=== PATIENT | male | born 1955 | race Caucasian/White ===

== ENCOUNTER 2020-03-29 12:54 | Outpatient (CLI) | payer BC, OTHER ==
[~2020-03-29 12:54] MED LIST: ENAL20TA75 PO
[2020-03-29 13:27] LABS: BASOPHILS # (AUTO) 0.1 X10'3 (0-0.2); BASOPHILS % (AUTO) 0.8 % (0-1); EOSINOPHILS # (AUTO) 0.2 X10'3 (0-0.9); EOSINOPHILS % (AUTO) 2.3 % (0-6); HEMATOCRIT 43.9 % (42.0-52.0); HEMOGLOBIN 14.9 g/dl (14.0-17.9); LYMPHOCYTES # (AUTO) 2.4 X10'3 (1.1-4.8); LYMPHOCYTES % (AUTO) 26.2 % (21-51); MEAN CORPUSCULAR HEMOGLOBIN 30.2 PG (27.0-31.0); MEAN CORPUSCULAR HGB CONC 33.8 g/dL (33.0-36.5); MEAN CORPUSCULAR VOLUME 89.2 FL (78-98); MEAN PLATELET VOLUME 8.4 FL (7.4-10.4); MONOCYTES # (AUTO) 1.5 X10'3 (0-0.9); MONOCYTES % (AUTO) 16.4 % (2-12); NEUTROPHILS % (AUTO) 54.3 % (42-75); PLATELET COUNT 282 X10'3 (140-440); RED BLOOD COUNT 4.92 X10'6 (4.70-6.10); RED CELL DISTRIBUTION WIDTH 14.3 % (11.5-14.5); WHITE BLOOD COUNT 9.3 X10'3 (4.5-11.0)
[2020-03-29 13:30] LABS: ALBUMIN 3.8 G/DL (3.4-5.0); ANION GAP 9 (8-16); BLOOD UREA NITROGEN 19 MG/DL (7-18); BUN/CREATININE RATIO 21.1 (5.4-32.0); CALCIUM 8.7 MG/DL (8.5-10.1); CHLORIDE 106 MMOL/L (99-107); GLUCOSE 138 MG/DL (70-104); POTASSIUM 4.3 MMOL/L (3.5-5.1); SODIUM 140 MMOL/L (135-145); TOTAL CARBON DIOXIDE 24.8 MMOL/L (24-32); eGFR 86 ML/MIN
[2020-03-29 13:35] LABS: PARTIAL THROMBOPLASTIN TIME 46 SECONDS (22-32)
== END 2020-03-29 23:59 | disposition home or self-care (01) ==
LOC: LAB 12:54
PROVIDERS: ATTEND Internal Medicine Interventional Cardiology
DX: I48.0 Paroxysmal atrial fibrillation (principal); Z79.01 Long term (current) use of anticoagulants
CPT/HCPCS: 36415; 80048; 85025; 85610; 85730

== ENCOUNTER 2020-04-03 13:57 | Day surgery (SDC) | payer OTHER ==
[2020-04-03] VITALS (7 sets, daily range): BP systolic 94–113; BP diastolic 44–75
[~2020-04-03] VITALS: Ht 170.2 cm; Wt 105.7 kg
[2020-04-03] MEDS ORDERED: diphenhydrAMINE 25mg capsule PO PRN (14:25)
[2020-04-03] MEDS ORDERED: normal saline 1,000 ML IV SCH (14:25)
[2020-04-03] MEDS ORDERED: LORazepam 0.5 MG tablet PO PRN (14:25)
[2020-04-03] MEDS ORDERED: SOTA80TA PO (14:38)
[2020-04-03] MEDS ORDERED: ATOR20TA66 PO (14:38)
[2020-04-03] MEDS ORDERED: WARF10TA45 PO (14:38)
[2020-04-03] MEDS ORDERED: METF-438 PO (14:38)
[2020-04-03] MEDS ORDERED: ASPI-611 PO (14:38)
[2020-04-03] MEDS ORDERED: nitroGLYCERIN-Tridil 50MG/D5W 250 ML IV ONE (16:00)
[2020-04-03] MEDS ORDERED: LIDOcaine 1% (10mg/ml)w/preservative injection 20ml MDV ONE (16:00)
[2020-04-03] MEDS ORDERED: heparin 1,000unit/ml 10ml vial 10 ML ONE (16:00)
[2020-04-03] MEDS ORDERED: iohexol 350MG/ML 100ml bottle IV ONE (16:00)
[2020-04-03] MEDS ORDERED: midazolam 2 mg/2 ml injection ONE (16:00)
[2020-04-03] MEDS ORDERED: fentaNYL/PF 50MCG/1 ML 2ML syringe ONE (16:00)
[2020-04-03] MEDS ORDERED: verapamil 2.5 mg/ml inj IV ONE (16:00)
[2020-04-03] MEDS ORDERED: ondansetron/PF 4mg/2ml inj IV PRN (17:20)
[2020-04-03] MEDS ORDERED: OXAZEpam 15mg capsule PO PRN (17:20)
[2020-04-03] MEDS ORDERED: proCHLORperazine 10 MG/2 ml inj IV PRN (17:20)
== END 2020-04-03 19:00 | disposition home or self-care (01) ==
LOC: SSTAY O 13:57
PROVIDERS: ATTEND Internal Medicine Interventional Cardiology
DX: I35.0 Nonrheumatic aortic (valve) stenosis (principal); I25.10 Atherosclerotic heart disease of native coronary artery without angina pectoris; I48.0 Paroxysmal atrial fibrillation; E11.9 Type 2 diabetes mellitus without complications; I10 Essential (primary) hypertension; E78.49 Other hyperlipidemia; I65.23 Occlusion and stenosis of bilateral carotid arteries; Z79.84 Long term (current) use of oral hypoglycemic drugs; Z79.82 Long term (current) use of aspirin; Z79.01 Long term (current) use of anticoagulants; Z79.899 Other long term (current) drug therapy
CPT/HCPCS: 36415; 85610; 93005; 93454; 99152; C1769; J1644; J2001; J2250; J3010; J7030; Q0163; Q9967; A4620; A6258; J3490

== ENCOUNTER 2020-05-15 09:35 | Outpatient (CLI) | payer OTHER ==
[~2020-05-15 09:35] MED LIST changes: +ASPI-611 PO; +ATOR20TA66 PO; +METF-438 PO; +SOTA80TA PO; +WARF10TA45 PO
[2020-05-15 11:28] LABS: BASOPHILS # (AUTO) 0.1 X10'3 (0-0.2); BASOPHILS % (AUTO) 0.9 % (0-1); EOSINOPHILS # (AUTO) 0.2 X10'3 (0-0.9); EOSINOPHILS % (AUTO) 2.2 % (0-6); HEMATOCRIT 44.5 % (42.0-52.0); LYMPHOCYTES # (AUTO) 2.3 X10'3 (1.1-4.8); LYMPHOCYTES % (AUTO) 23.8 % (21-51); MEAN CORPUSCULAR HEMOGLOBIN 30.3 PG (27.0-31.0); MEAN CORPUSCULAR HGB CONC 33.7 g/dL (33.0-36.5); MEAN CORPUSCULAR VOLUME 89.8 FL (78-98); MEAN PLATELET VOLUME 8.3 FL (7.4-10.4); MONOCYTES # (AUTO) 1.4 X10'3 (0-0.9); MONOCYTES % (AUTO) 14.6 % (2-12); NEUTROPHILS # (AUTO) 5.6 X10'3 (1.8-7.7); NEUTROPHILS % (AUTO) 58.5 % (42-75); PLATELET COUNT 263 X10'3 (140-440); RED BLOOD COUNT 4.95 X10'6 (4.70-6.10); RED CELL DISTRIBUTION WIDTH 14.3 % (11.5-14.5); WHITE BLOOD COUNT 9.5 X10'3 (4.5-11.0)
[2020-05-15 11:37] LABS: PARTIAL THROMBOPLASTIN TIME 50 SECONDS (22-32)
[2020-05-15 11:39] LABS: ALANINE AMINOTRANSFERASE 58 U/L (12-78); ALBUMIN 3.5 G/DL (3.4-5.0); ALBUMIN/GLOBULIN RATIO 1.1 (1.1-1.5); ALKALINE PHOSPHATASE 88 IU/L (46-116); ANION GAP 7 (8-16); ASPARTATE AMINO TRANSFERASE 26 U/L (10-37); BILIRUBIN,TOTAL 0.5 MG/DL (0.1-1.0); BLOOD UREA NITROGEN 16 MG/DL (7-18); CALCIUM 8.3 MG/DL (8.5-10.1); CHLORIDE 105 MMOL/L (99-107); CREATININE 0.94 MG/DL (0.60-1.10); GLUCOSE 218 MG/DL (70-104); POTASSIUM 4.6 MMOL/L (3.5-5.1); SODIUM 139 MMOL/L (135-145); TOTAL CARBON DIOXIDE 26.7 MMOL/L (24-32); TOTAL PROTEIN 6.8 G/DL (6.4-8.2); eGFR 81 ML/MIN
== END 2020-05-15 23:59 | disposition home or self-care (01) ==
LOC: RT 09:35
PROVIDERS: ATTEND Internal Medicine Cardiovascular Disease
DX: R06.02 Shortness of breath (principal); I35.0 Nonrheumatic aortic (valve) stenosis; I65.29 Occlusion and stenosis of unspecified carotid artery
CPT/HCPCS: 36415; 80053; 85025; 85610; 85730; 94010; 94727; 94729

== ENCOUNTER 2020-05-18 09:42 | Outpatient (CLI) | payer OTHER ==
[2020-05-18] MEDS ORDERED: iohexol 350 MG/ML 50ML vial IV ONE (10:11)
[2020-05-18] MEDS ORDERED: iohexol 350MG/ML 100ml bottle IV ONE (10:11)
== END 2020-05-18 23:59 | disposition home or self-care (01) ==
LOC: 64 CT 09:42
PROVIDERS: ATTEND Internal Medicine Cardiovascular Disease
DX: K57.30 Diverticulosis of large intestine without perforation or abscess without bleeding (principal); K76.0 Fatty (change of) liver, not elsewhere classified; I25.10 Atherosclerotic heart disease of native coronary artery without angina pectoris; I35.0 Nonrheumatic aortic (valve) stenosis; R06.02 Shortness of breath
CPT/HCPCS: 71046; 71275; 74174; Q9967

== ENCOUNTER → 2020-06-01 | Outpatient (CLI) | payer OTHER ==
[~2020-06-01] VITALS: Ht 170.2 cm; Wt 108.0 kg
[~2020-06-01] MED LIST changes: +AMIO200T67 PO; +ENOX100D5 SUBCUT; +FURO-150 PO; +HYDR-3964 PO; +LOP25T PO; +POTA10TA36 PO; +WARF-55 PO
--- NOTE | 2020-06-01 15:27 | NUR ---
Mitch was seen today for his 1st clinic visit consult with Dr Martinez and Dr Carr. KCCQ12 and walk test performed. Patient had discussion about TAVR vs SAVR and was able to have questions answered. Patient will discuss options with his sister and will be intouch about which direction he would prefer.
[2020-06-01 15:30] VITALS: BP 137/87
== END | disposition home or self-care (01) ==
LOC: TAVR 12:21
PROVIDERS: ATTEND Internal Medicine Cardiovascular Disease
DX: I35.0 Nonrheumatic aortic (valve) stenosis (principal); R06.02 Shortness of breath; I65.29 Occlusion and stenosis of unspecified carotid artery

== ENCOUNTER 2020-06-21 05:21 | Inpatient (IN) | payer OTHER ==
[2020-06-14 13:46] LABS: BASOPHILS # (AUTO) 0.1 X10'3 (0-0.2); BASOPHILS % (AUTO) 0.6 % (0-1); EOSINOPHILS # (AUTO) 0.2 X10'3 (0-0.9); EOSINOPHILS % (AUTO) 1.9 % (0-6); LYMPHOCYTES # (AUTO) 2.5 X10'3 (1.1-4.8); LYMPHOCYTES % (AUTO) 24.1 % (21-51); MEAN CORPUSCULAR HEMOGLOBIN 30.2 PG (27.0-31.0); MEAN CORPUSCULAR HGB CONC 33.8 g/dL (33.0-36.5); MEAN CORPUSCULAR VOLUME 89.4 FL (78-98); MEAN PLATELET VOLUME 8.3 FL (7.4-10.4); MONOCYTES # (AUTO) 1.5 X10'3 (0-0.9); MONOCYTES % (AUTO) 15.1 % (2-12); NEUTROPHILS # (AUTO) 5.9 X10'3 (1.8-7.7); NEUTROPHILS % (AUTO) 58.3 % (42-75); PRE OP HEMATOCRIT 43.6 % (42.0-52.0); PRE OP HEMOGLOBIN 14.7 g/dL (14.0-17.9); PRE OP PLATELET COUNT 272 X10'3 (140-440); RED BLOOD COUNT 4.88 X10'6 (4.70-6.10); RED CELL DISTRIBUTION WIDTH 14.1 % (11.5-14.5)
[2020-06-14 14:02] LABS: ALBUMIN 3.7 G/DL (3.4-5.0); ALBUMIN/GLOBULIN RATIO 1.1 (1.1-1.5); ALKALINE PHOSPHATASE 87 IU/L (46-116); BLOOD UREA NITROGEN 19 MG/DL (7-18); BUN/CREATININE RATIO 20.9 (5.4-32.0); CALCIUM 8.9 MG/DL (8.5-10.1); CHLORIDE 105 MMOL/L (99-107); CREATININE 0.91 MG/DL (0.60-1.10); PRE OP ALT 52 U/L (30-65); PRE OP ANION GAP 4 (8-16); PRE OP AST 25 U/L (10-37); PRE OP BILIRUB, TOTAL 0.4 MG/DL (0.0-1.0); PRE OP GLUCOSE 151 MG/DL (70-104); PRE OP POTASSIUM 4.2 MMOL/L (3.4-5.1); PRE OP SODIUM 138 MMOL/L (135-145); TOTAL CARBON DIOXIDE 28.7 MMOL/L (24-32); TOTAL PROTEIN 7.1 G/DL (6.4-8.2); eGFR 84 ML/MIN
[2020-06-14 14:04] LABS: CLARITY,URINE CLEAR (Clear); COLOR,URINE YELLOW (Yellow); GLUCOSE, URINE NEGATIVE (Neg); KETONES,URINE NEGATIVE (Neg); LEUKOCYTE ESTERASE ,URINE NEGATIVE (Neg); NITRITES, URINE NEGATIVE (Neg); OCCULT BLOOD,URINE NEGATIVE (Neg); PROTEIN,URINE NEGATIVE (Neg); UROBILINOGEN,URINE 0.2 E.U/dL (0.2-1.0)
[2020-06-14 14:11] LABS: UA COLLECTION TYPE CLN CATCH MIDSTREAM
[2020-06-14 15:54] LABS: HEMOGLOBIN A1C 7.3 % (4.5-6.2)
[2020-06-19 09:42] LABS: ABG BASE EXCESS 1.4 mmol/L (-2.0-2.0); ABG HCO3 25.5 mmol/L (22.0-26.0); ABG OXYGEN SATURATION 97.7 % (94-97); ABG PCO2 (T) 38.7 mmHg (35.0-48.0); ABG PO2 (T) 99.8 mmHg (75.0-100.0); ALLEN'S TEST POSITIVE; FCOHb 0.4 % (0.0-3.9); FMetHb 0.1 % (0.0-1.5); FO2Hb 97.2 % (94-97); TOTAL HEMOGLOBIN 15.6 G/dl (14.0-18.0)
[2020-06-21] VITALS (17 sets, daily range): BP systolic 95–128; BP diastolic 38–68
[~2020-06-21] VITALS: Ht 170.2 cm; Wt 109.5 kg
[~2020-06-21 05:21] MED LIST changes: -AMIO200T67 PO; -ENOX100D5 SUBCUT; -FURO-150 PO; -HYDR-3964 PO; -LOP25T PO; -POTA10TA36 PO; -WARF-55 PO; +ceFAZolin 1000mg inj ONE; +ringers solution, lacted 1,000 ML IV SCH
[2020-06-21] MEDS ORDERED: famotidine 20mg tablet PO ONE (05:30)
[2020-06-21] MEDS ORDERED: mupirocin 2% nasal ointment 1gm UD NS ONE (05:30)
[2020-06-21] MEDS ORDERED: vancomycin 1,500 MG in NS 300ml IV soln IV ONE (05:30)
[2020-06-21] MEDS ORDERED: gabapentin 400mg capsule PO ONE (05:30)
[2020-06-21] MEDS ORDERED: metoprolol tartrate 12.5mg (1/2 tablet) PO ONE (05:30)
[2020-06-21] MEDS ORDERED: DOCUMENT DATE & TIME OF BETA-BLOCKER PO ONE (05:30)
[2020-06-21] MEDS ORDERED: dextrose 50%-water 50ml dispensing syringe IV PRN ×2 (05:30→12:25)
[2020-06-21] MEDS: insulin regular, human inj. 100 UNITS in normal saline 100ml IV IV SCH ×3 (05:30→23:51)
[2020-06-21] MEDS ORDERED: ceFAZolin 2gm in dextrose, iso 50 ML IV ONE (05:30)
[2020-06-21] MEDS ORDERED: WARF-55 PO ×2 (06:28→06:36)
[2020-06-21] MEDS ORDERED: LORazepam 2 mg/ml vial IV ONE (06:40)
[2020-06-21] MEDS ORDERED: SUFENTANIL CITRATE 50 MCG/ML 2ml ampule IV ONE (07:02)
[2020-06-21] MEDS ORDERED: propofol inj 20 ML IV ONE (07:03)
[2020-06-21] MEDS ORDERED: rocuronium 10mg/ml inj IV ONE ×3 (07:03→08:08)
[2020-06-21] MEDS ORDERED: MIDAZolam 1 MG/ML 5ML VIAL ONE (07:03)
[2020-06-21 07:04] LABS: PRE OP INR 1.3 INR; PRE OP PROTIME 12.9 SECONDS (9.0-12.0)
[2020-06-21] MEDS ORDERED: ePHEDrine 50MG/ML INJ. ONE (07:07)
[2020-06-21 07:59] LABS: ABG BASE EXCESS -4.5 mmol/L (-2.0-2.0); ABG HCO3 20.9 mmol/L (22.0-26.0); ABG OXYGEN SATURATION 97.8 % (94-97); ABG PCO2 39.8 mmHg (35.0-48.0); ABG PO2 100.5 mmHg (75.0-100.0); CL (ABG) 103 mmol/L (98-110); FCOHb 0.7 % (0.0-3.9); FMetHb 0.3 % (0.0-1.5); FO2Hb 96.8 % (94-97); GLUCOSE (ABG) 232 mg/dl (70-140); IONIZED CA (ABG) 1.13 mmol/L (1.10-1.43); K (ABG) 4.3 mmol/L (3.5-5.0); TOTAL HEMOGLOBIN 13.5 G/dl (14.0-18.0)
[2020-06-21] MEDS ORDERED: potassium Cl 2 mEq/ml inj IV ONE (08:00)
[2020-06-21] MEDS ORDERED: LIDOcaine 2% (20 mg/ml) 5ml cardiac syringe ONE (08:00)
[2020-06-21] MEDS ORDERED: aminocaproic acid 250 MG/1 ML inj. ONE (08:00)
[2020-06-21] MEDS ORDERED: heparin 1,000 units/ml 10ml inj ONE (08:00)
[2020-06-21] MEDS ORDERED: albumin (human) 25% 100 ML IV solution IV ONE (08:00)
[2020-06-21] MEDS ORDERED: heparin 10,000 units/1 ML INJ ONE (08:00)
[2020-06-21] MEDS ORDERED: NORepinephrine 1 mg/ml inj IV ONE (08:00)
[2020-06-21] MEDS ORDERED: MAGNESIUM SULFATE 4 MEQ/ML (5gm/10ml) injection ONE (08:00)
[2020-06-21] MEDS ORDERED: sodium bicarbonate (8.4%) 1 mEq/ml syringe ONE (08:00)
[2020-06-21] MEDS ORDERED: methylPREDNISolone sod succ 1000mg vial ONE (08:00)
[2020-06-21] MEDS ORDERED: calcium chloride 100 MG/1 ML inj IV ONE (08:00)
[2020-06-21 08:54] LABS: ABG BASE EXCESS 0.7 mmol/L (-2.0-2.0); ABG HCO3 25.6 mmol/L (22.0-26.0); ABG OXYGEN SATURATION 99.2 % (94-97); ABG PO2 213.7 mmHg (75.0-100.0); CL (ABG) 104 mmol/L (98-110); FCOHb 0.3 % (0.0-3.9); FMetHb 0.1 % (0.0-1.5); FO2Hb 98.8 % (94-97); GLUCOSE (ABG) 187 mg/dl (70-140); IONIZED CA (ABG) 1.03 mmol/L (1.10-1.43); TOTAL HEMOGLOBIN 11.5 G/dl (14.0-18.0)
[2020-06-21 10:26] LABS: ABG BASE EXCESS VENOUS -0.6 mmol/L; ABG HCO3 VENOUS 25.7 mmol/L; ABG PCO2 VENOUS 49.3 mmHg; ABG PO2 VENOUS 52.2 mmHg; CL (ABG) 104 mmol/L (98-110); FCOHb VENOUS 0.8 %; FHHb VENOUS 14.2 %; FMetHb VENOUS 0.2 %; FO2Hb VENOUS 84.8 %; GLUCOSE (ABG) 232 mg/dl (70-140); IONIZED CA (ABG) 1.07 mmol/L (1.10-1.43); K (ABG) 5.3 mmol/L (3.5-5.0); TOTAL HEMOGLOBIN 12.5 G/dl (14.0-18.0)
[2020-06-21 10:26] LABS: ABG BASE EXCESS -1.1 mmol/L (-2.0-2.0); ABG HCO3 23.6 mmol/L (22.0-26.0); ABG OXYGEN SATURATION 99.4 % (94-97); ABG PCO2 39.2 mmHg (35.0-48.0); ABG PO2 209.2 mmHg (75.0-100.0); CL (ABG) 105 mmol/L (98-110); FCOHb 0.5 % (0.0-3.9); FMetHb 0.3 % (0.0-1.5); FO2Hb 98.6 % (94-97); GLUCOSE (ABG) 256 mg/dl (70-140); IONIZED CA (ABG) 1.05 mmol/L (1.10-1.43); K (ABG) 5.3 mmol/L (3.5-5.0); TOTAL HEMOGLOBIN 12.1 G/dl (14.0-18.0)
[2020-06-21 11:12] LABS: ABG BASE EXCESS 0.4 mmol/L (-2.0-2.0); ABG HCO3 25.4 mmol/L (22.0-26.0); ABG OXYGEN SATURATION 99.3 % (94-97); ABG PCO2 42.7 mmHg (35.0-48.0); ABG PO2 415.7 mmHg (75.0-100.0); CL (ABG) 103 mmol/L (98-110); FCOHb 0.3 % (0.0-3.9); FMetHb 0.3 % (0.0-1.5); FO2Hb 98.7 % (94-97); GLUCOSE (ABG) 186 mg/dl (70-140); K (ABG) 4.8 mmol/L (3.5-5.0); TOTAL HEMOGLOBIN 10.2 G/dl (14.0-18.0)
[2020-06-21 11:34] LABS: ABG BASE EXCESS VENOUS -1.4 mmol/L; ABG HCO3 VENOUS 24.1 mmol/L; ABG PCO2 VENOUS 43.3 mmHg; CL (ABG) 106 mmol/L (98-110); FCOHb VENOUS 0.6 %; FMetHb VENOUS 0.3 %; FO2Hb VENOUS 65.1 %; GLUCOSE (ABG) 184 mg/dl (70-140); IONIZED CA (ABG) 1.19 mmol/L (1.10-1.43); K (ABG) 4.5 mmol/L (3.5-5.0); TOTAL HEMOGLOBIN 11.4 G/dl (14.0-18.0)
[2020-06-21 11:38] LABS: ACTIVATED CLOTTING TIME 143 SEC (101-148)
[2020-06-21] MEDS ORDERED: NORMAL SALINE IV ONE (11:50)
[2020-06-21] MEDS ORDERED: DESMOPRESSIN IV ONE (11:50)
[2020-06-21 12:14] LABS: ABG HCO3 19.3 mmol/L (22.0-26.0); ABG OXYGEN SATURATION 98.7 % (94-97); ABG PCO2 33.9 mmHg (35.0-48.0); ABG PO2 138.4 mmHg (75.0-100.0); CL (ABG) 110 mmol/L (98-110); FCOHb 0.7 % (0.0-3.9); FMetHb 0.3 % (0.0-1.5); FO2Hb 97.7 % (94-97); GLUCOSE (ABG) 166 mg/dl (70-140); IONIZED CA (ABG) 1.24 mmol/L (1.10-1.43); K (ABG) 4.3 mmol/L (3.5-5.0); TOTAL HEMOGLOBIN 14.2 G/dl (14.0-18.0)
[2020-06-21] MEDS ORDERED: potassium Cl 20 mEq SR tablet PO PRN (12:25)
[2020-06-21] MEDS ORDERED: NORepinephrine 8mg/ 250ml NS 250 ML IV PRN (12:25)
[2020-06-21] MEDS ORDERED: HYDROcodone/acetaminophen 10/325mg tab PO PRN ×2 (12:25)
[2020-06-21] MEDS ORDERED: magnesium 2GM in 50ml NS 50 ML IV PRN (12:25)
[2020-06-21] MEDS ORDERED: Neutra Phos packet PO PRN (12:25)
[2020-06-21] MEDS ORDERED: Insulin Reg/NS 100units/100mL 100 ML IV SCH (12:25)
[2020-06-21] MEDS ORDERED: morphine 4 MG/ML inj SYRINge IV PRN ×2 (12:25)
[2020-06-21] MEDS ORDERED: bisacodyl 10mg suppository rectal RC PRN (12:25)
[2020-06-21] MEDS ORDERED: ondansetron/PF 4mg/2ml inj IV PRN (12:25)
[2020-06-21] MEDS ORDERED: potassium Cl 40MEQ/250ML bag 250 ML IV PRN (12:25)
[2020-06-21] MEDS ORDERED: pantoprazole 40 MG vial IV ONE (12:25)
[2020-06-21] MEDS ORDERED: normal saline 250ml IV soln 250 ML IV PRN (12:25)
[2020-06-21] MEDS ORDERED: potassium CL 10mEq/100ml bag 100 ML IV PRN (12:25)
[2020-06-21] MEDS ORDERED: magnesium hydroxide 30ml (MOM) UD suspension PO PRN (12:25)
[2020-06-21] MEDS ORDERED: potassium Cl 40MEQ/1/2NS 520ml 520 ML IV PRN (12:25)
[2020-06-21] MEDS ORDERED: nitroGLYCERIN-Tridil 50MG/D5W 250 ML IV PRN (12:25)
[2020-06-21] MEDS ORDERED: DOPamine 400mg/D5W 250ml 250 ML IV PRN (12:25)
[2020-06-21] MEDS ORDERED: sodium phosphate inj. 15 MMOL in dextrose 5%-water 250 ML IV PRN (12:25)
[2020-06-21] MEDS ORDERED: mineral oil 133ml enema RC PRN (12:25)
[2020-06-21] MEDS ORDERED: magnesium citrate 296ml oral solution PO PRN (12:25)
[2020-06-21] MEDS ORDERED: magnesium 4gm in 100ml NS 100 ML IV PRN (12:25)
[2020-06-21] MEDS ORDERED: sodium phosphate inj. 30 MMOL in dextrose 5%-water 250 ML IV PRN (12:25)
[2020-06-21] MEDS ORDERED: niCARDipine-NS 40mg/200ml IVPB 200 ML IV PRN (12:25)
[2020-06-21] MEDS ORDERED: metoclopramide 5 mg/ml inj IV PRN (12:25)
[2020-06-21] MEDS ORDERED: acetaminophen 325mg tablet PO PRN (12:25)
[2020-06-21] MEDS ORDERED: albumin (Human) 5% 250ml 250 ML IV ONE ×2 (12:39)
[2020-06-21 13:05] LABS: ABG HCO3 20.5 mmol/L (22.0-26.0); ABG OXYGEN SATURATION 97.8 % (94-97); ABG PCO2 (T) 39.5 mmHg (35.0-48.0); ABG PO2 (T) 113.2 mmHg (75.0-100.0); FCOHb 0.2 % (0.0-3.9); FMetHb 0.4 % (0.0-1.5); FO2Hb 97.2 % (94-97); PEEP 5 cm H2O; RESPIRATORY RATE 12 b/min; TIDAL VOLUME 600 mL; TOTAL HEMOGLOBIN 13.3 G/dl (14.0-18.0)
[2020-06-21 13:12] LABS: BASOPHILS % (AUTO) 0.3 % (0-1); EOSINOPHILS % (AUTO) 0.2 % (0-6); HEMATOCRIT 37.8 % (42.0-52.0); HEMOGLOBIN 12.6 g/dl (14.0-17.9); LYMPHOCYTES # (AUTO) 1.2 X10'3 (1.1-4.8); LYMPHOCYTES % (AUTO) 7.1 % (21-51); MEAN CORPUSCULAR HEMOGLOBIN 30.1 PG (27.0-31.0); MEAN CORPUSCULAR HGB CONC 33.4 g/dL (33.0-36.5); MEAN CORPUSCULAR VOLUME 90.1 FL (78-98); MEAN PLATELET VOLUME 8.2 FL (7.4-10.4); MONOCYTES # (AUTO) 1.9 X10'3 (0-0.9); NEUTROPHILS # (AUTO) 13.9 X10'3 (1.8-7.7); NEUTROPHILS % (AUTO) 81.4 % (42-75); PLATELET COUNT 99 X10'3 (140-440); RED BLOOD COUNT 4.19 X10'6 (4.70-6.10); RED CELL DISTRIBUTION WIDTH 13.9 % (11.5-14.5)
[2020-06-21] MEDS: amiodarone/D5 360MG/200ML BAG 200 ML IV SCH ×2 (13:17→18:20)
[2020-06-21] MEDS: DOBUTamine-DoBUTrex 500mg/D5W 250 ML IV PRN (13:18)
[2020-06-21 13:23] LABS: PARTIAL THROMBOPLASTIN TIME 35 SECONDS (22-32)
[2020-06-21 13:25] LABS: ALANINE AMINOTRANSFERASE 44 U/L (12-78); ALBUMIN 3.1 G/DL (3.4-5.0); ALBUMIN/GLOBULIN RATIO 1.7 (1.1-1.5); ALKALINE PHOSPHATASE 44 IU/L (46-116); ANION GAP 11 (8-16); BILIRUBIN,TOTAL 0.9 MG/DL (0.1-1.0); BLOOD UREA NITROGEN 19 MG/DL (7-18); BUN/CREATININE RATIO 20.9 (5.4-32.0); CALCIUM 8.1 MG/DL (8.5-10.1); CHLORIDE 112 MMOL/L (99-107); CREATININE 0.91 MG/DL (0.60-1.10); GLUCOSE 159 MG/DL (70-104); MAGNESIUM 3.3 MG/DL (1.5-2.4); SODIUM 145 MMOL/L (135-145); TOTAL CARBON DIOXIDE 22.1 MMOL/L (24-32); TOTAL PROTEIN 4.9 G/DL (6.4-8.2); eGFR 84 ML/MIN
[2020-06-21 13:27] LABS: ASPARTATE AMINO TRANSFERASE 294 U/L (10-37); PHOSPHORUS 1.3 MG/DL (2.3-4.5)
[2020-06-21 13:45] LABS: PLATELET ESTIMATE DECREASED; TOTAL CELLS COUNTED 100
[2020-06-21] MEDS: potassium Cl 20mEq/100mL bag 100 ML IV PRN ×4 (13:51→20:16)
[2020-06-21] MEDS: sodium chloride 0.45% 1,000 ML IV SCH (14:03)
[2020-06-21] MEDS: gabapentin 300mg capsule PO SCH ×2 (14:26→21:15)
--- NOTE | 2020-06-21 15:29 | NUR ---
Nutrition consult, pt is s/p AVR, will need written post cardiac education handout with verbal review prior to discharge. Addendum: 06/21/20 at [address] Amended: Links added.
[2020-06-21 15:37] LABS: K (ABG) 6.3 mmol/L (3.5-5.0)
[2020-06-21 15:39] LABS: OXYGEN SATURATION (MIXED VEN) 59.8 % (60-80); PO2 MIXED VENOUS (TEMP COR) 30.4 mmHg (35-46)
[2020-06-21] MEDS: ceFAZolin/D5W- 1GM premix 50 ML IV SCH (15:57)
[2020-06-21] MEDS: albumin (Human) 5% 250ml 250 ML IV PRN ×2 (16:00→18:24)
[2020-06-21] MEDS: milrinone (Primacor) 20mg/D5W 100 ML IV SCH (16:53)
[2020-06-21 17:38] LABS: ABG BASE EXCESS -3.2 mmol/L (-2.0-2.0); ABG HCO3 21.4 mmol/L (22.0-26.0); ABG OXYGEN SATURATION 96.4 % (94-97); ABG PCO2 (T) 36.8 mmHg (35.0-48.0); ABG PO2 (T) 88.6 mmHg (75.0-100.0); FCOHb 0.3 % (0.0-3.9); FMetHb 0.5 % (0.0-1.5); FO2Hb 95.6 % (94-97); PATIENT TEMPERATURE 36.9; PEEP 5 cm H2O; TOTAL HEMOGLOBIN 12.2 G/dl (14.0-18.0)
--- NOTE | 2020-06-21 18:03 | NUR ---
Pt's CI finally 2.0 but BP low with MAP < 60. SVR continuing to drop. Pt passed weaning parameters. Called Dr. Martinez who said to extubated to see if CI and vital signs changed post extubation and to wean down dobutamine if SVR and BP continued to be low. Pt extubated at 1750. Latest CI 2.4. Dobutamine turned down from 5 mcg to 4
[2020-06-21 18:12] LABS: BASOPHILS % (AUTO) 0.1 % (0-1); EOSINOPHILS % (AUTO) 0 % (0-6); HEMATOCRIT 31.9 % (42.0-52.0); HEMOGLOBIN 10.6 g/dl (14.0-17.9); LYMPHOCYTES # (AUTO) 0.5 X10'3 (1.1-4.8); LYMPHOCYTES % (AUTO) 3.2 % (21-51); MEAN CORPUSCULAR HEMOGLOBIN 30.1 PG (27.0-31.0); MEAN CORPUSCULAR HGB CONC 33.3 g/dL (33.0-36.5); MEAN CORPUSCULAR VOLUME 90.4 FL (78-98); MEAN PLATELET VOLUME 8.4 FL (7.4-10.4); MONOCYTES # (AUTO) 1.1 X10'3 (0-0.9); MONOCYTES % (AUTO) 7.2 % (2-12); NEUTROPHILS # (AUTO) 13.3 X10'3 (1.8-7.7); NEUTROPHILS % (AUTO) 89.5 % (42-75); PLATELET COUNT 86 X10'3 (140-440); RED BLOOD COUNT 3.53 X10'6 (4.70-6.10); RED CELL DISTRIBUTION WIDTH 14.1 % (11.5-14.5); WHITE BLOOD COUNT 14.9 X10'3 (4.5-11.0)
--- NOTE | 2020-06-21 18:18 | NUR ---
Patient in room ICU 2044. I have received report from Cathleen HOBBS and had the opportunity to ask questions and assume patient care. Patient hypotensive, MAP:54. Levophed started and titrated per existing MD order. Patient sleepy but awakens to voice, moves all extremities. Awaiting pending lab results. Dobutamine@ 4mcg. CI:2.5.
[2020-06-21 18:24] LABS: ALBUMIN 3.4 G/DL (3.4-5.0); ANION GAP 9 (8-16); BLOOD UREA NITROGEN 20 MG/DL (7-18); BUN/CREATININE RATIO 18.7 (5.4-32.0); CALCIUM 7.8 MG/DL (8.5-10.1); CHLORIDE 113 MMOL/L (99-107); CREATININE 1.07 MG/DL (0.60-1.10); GLUCOSE 192 MG/DL (70-104); MAGNESIUM 2.6 MG/DL (1.5-2.4); POTASSIUM 3.8 MMOL/L (3.5-5.1); SODIUM 144 MMOL/L (135-145); TOTAL CARBON DIOXIDE 22.5 MMOL/L (24-32); eGFR 70 ML/MIN
[2020-06-21] MEDS: vancomycin/NS 1 GM ADD-VANTAGE 250 ML IV SCH (19:59)
[2020-06-21] MEDS: mupirocin 2% nasal ointment 1gm UD NS SCH (19:59)
[2020-06-21] MEDS: sennosides/docusate sodium tablet PO SCH (20:00)
--- NOTE | 2020-06-21 21:46 | NUR ---
Problems reprioritized. Patient report given, questions answered & plan of care reviewed with Mer HOBBS.
[2020-06-22] VITALS (24 sets, daily range): BP systolic 81–138; BP diastolic 35–55
[2020-06-22] MEDS: ceFAZolin/D5W- 1GM premix 50 ML IV SCH ×3 (00:13→16:00)
[2020-06-22] MEDS: milrinone (Primacor) 20mg/D5W 100 ML IV SCH ×4 (02:37→23:16)
[2020-06-22] MEDS: amiodarone/D5 360MG/200ML BAG 200 ML IV SCH ×2 (02:38→06:25)
[2020-06-22 03:26] LABS: BASOPHILS % (AUTO) 0.1 % (0-1); EOSINOPHILS % (AUTO) 0 % (0-6); HEMATOCRIT 30.8 % (42.0-52.0); HEMOGLOBIN 10.3 g/dl (14.0-17.9); LYMPHOCYTES # (AUTO) 0.9 X10'3 (1.1-4.8); LYMPHOCYTES % (AUTO) 4.3 % (21-51); MEAN CORPUSCULAR HEMOGLOBIN 29.8 PG (27.0-31.0); MEAN CORPUSCULAR HGB CONC 33.6 g/dL (33.0-36.5); MEAN CORPUSCULAR VOLUME 88.9 FL (78-98); MONOCYTES # (AUTO) 2.5 X10'3 (0-0.9); NEUTROPHILS # (AUTO) 17.7 X10'3 (1.8-7.7); NEUTROPHILS % (AUTO) 83.6 % (42-75); PLATELET COUNT 115 X10'3 (140-440); RED BLOOD COUNT 3.46 X10'6 (4.70-6.10); RED CELL DISTRIBUTION WIDTH 14.6 % (11.5-14.5); WHITE BLOOD COUNT 21.2 X10'3 (4.5-11.0)
[2020-06-22 03:30] LABS: PARTIAL THROMBOPLASTIN TIME 29 SECONDS (22-32)
[2020-06-22 03:37] LABS: ALANINE AMINOTRANSFERASE 40 U/L (12-78); ALBUMIN 3.4 G/DL (3.4-5.0); ALBUMIN/GLOBULIN RATIO 1.9 (1.1-1.5); ALKALINE PHOSPHATASE 28 IU/L (46-116); ANION GAP 10 (8-16); ASPARTATE AMINO TRANSFERASE 227 U/L (10-37); BILIRUBIN,TOTAL 0.5 MG/DL (0.1-1.0); BLOOD UREA NITROGEN 19 MG/DL (7-18); BUN/CREATININE RATIO 15.1 (5.4-32.0); CHLORIDE 113 MMOL/L (99-107); CREATININE 1.26 MG/DL (0.60-1.10); GLUCOSE 119 MG/DL (70-104); MAGNESIUM 2.5 MG/DL (1.5-2.4); PHOSPHORUS 3.2 MG/DL (2.3-4.5); POTASSIUM 4.1 MMOL/L (3.5-5.1); SODIUM 145 MMOL/L (135-145); TOTAL PROTEIN 5.2 G/DL (6.4-8.2); eGFR 58 ML/MIN
[2020-06-22 04:54] LABS: TOTAL CELLS COUNTED 100
[2020-06-22 04:55] LABS: PLATELET ESTIMATE NORMAL
[2020-06-22] MEDS: insulin regular, human inj. 100 UNITS in normal saline 100ml IV IV SCH (07:22)
[2020-06-22] MEDS ORDERED: aspirin 325mg tablet, delayed-release (Ecotrin) PO SCH (08:00)
[2020-06-22] MEDS: vancomycin/NS 1 GM ADD-VANTAGE 250 ML IV SCH ×2 (08:23→19:36)
[2020-06-22] MEDS: gabapentin 300mg capsule PO SCH ×3 (08:25→21:07)
[2020-06-22] MEDS: metoprolol tartrate 12.5mg (1/2 tablet) PO SCH ×2 (08:25→19:39)
[2020-06-22] MEDS: mupirocin 2% nasal ointment 1gm UD NS SCH ×2 (08:25→19:36)
[2020-06-22] MEDS: sennosides/docusate sodium tablet PO SCH ×2 (08:25→19:39)
[2020-06-22] MEDS: DOBUTamine-DoBUTrex 500mg/D5W 250 ML IV PRN (08:26)
[2020-06-22] MEDS: insulin glargine (Lantus) pen - multi-dose SQ PRN ×2 (08:32→09:34)
[2020-06-22] MEDS: insulin Lispro (HumaLOG) vial - multi-dose SQ SCH ×4 (09:33→21:33)
[2020-06-22] MEDS ORDERED: furosemide 40mg/4ml inj IV ONE (12:05)
[2020-06-22] MEDS: amiodarone 200mg tablet PO SCH ×2 (12:07→19:39)
--- NOTE | 2020-06-22 16:00 | NUR ---
I have reviewed and agree with all medications administered and interventions performed by [facility], Monica Black.
[2020-06-22] MEDS: acetaminophen 325mg tablet PO PRN (17:55)
--- NOTE | 2020-06-22 18:30 | NUR ---
Patient in room ICU 2044. I have received report from Anastasia HOBBS and had the opportunity to ask questions and assume patient care.
[2020-06-22] MEDS ORDERED: amiodarone 200mg tablet PO SCH (20:00)
[2020-06-23] VITALS (23 sets, daily range): BP systolic 1–147; BP diastolic 48–119
[2020-06-23] MEDS: ceFAZolin/D5W- 1GM premix 50 ML IV SCH (00:14)
[2020-06-23 03:16] LABS: EOSINOPHILS % (AUTO) 0 % (0-6); HEMOGLOBIN 9.2 g/dl (14.0-17.9); MONOCYTES # (AUTO) 4.3 X10'3 (0-0.9); RED BLOOD COUNT 3.08 X10'6 (4.70-6.10)
[2020-06-23 03:19] LABS: BASOPHILS # (AUTO) 0.1 X10'3 (0-0.2); BASOPHILS % (AUTO) 0.3 % (0-1); HEMATOCRIT 27.5 % (42.0-52.0); LYMPHOCYTES # (AUTO) 2.2 X10'3 (1.1-4.8); LYMPHOCYTES % (AUTO) 8.7 % (21-51); MEAN CORPUSCULAR HEMOGLOBIN 29.8 PG (27.0-31.0); MEAN CORPUSCULAR HGB CONC 33.3 g/dL (33.0-36.5); MEAN CORPUSCULAR VOLUME 89.3 FL (78-98); MEAN PLATELET VOLUME 9.4 FL (7.4-10.4); MONOCYTES % (AUTO) 16.7 % (2-12); NEUTROPHILS # (AUTO) 19.1 X10'3 (1.8-7.7); NEUTROPHILS % (AUTO) 74.3 % (42-75); PLATELET COUNT 109 X10'3 (140-440); RED CELL DISTRIBUTION WIDTH 14.2 % (11.5-14.5)
[2020-06-23 03:25] LABS: WHITE BLOOD COUNT 25.7 X10'3 (4.5-11.0)
[2020-06-23 03:53] LABS: ALBUMIN 2.9 G/DL (3.4-5.0); ANION GAP 12 (8-16); BLOOD UREA NITROGEN 29 MG/DL (7-18); BUN/CREATININE RATIO 22.3 (5.4-32.0); CALCIUM 7.7 MG/DL (8.5-10.1); CHLORIDE 103 MMOL/L (99-107); GLUCOSE 180 MG/DL (70-104); MAGNESIUM 2.2 MG/DL (1.5-2.4); PHOSPHORUS 3.3 MG/DL (2.3-4.5); SODIUM 137 MMOL/L (135-145); eGFR 56 ML/MIN
[2020-06-23 04:09] LABS: POTASSIUM 4.5 MMOL/L (3.5-5.1)
--- NOTE | 2020-06-23 06:11 | NUR ---
Problems reprioritized. Patient report given, questions answered & plan of care reviewed with Anastasia OHBBS.
[2020-06-23 07:26] LABS: PLATELET ESTIMATE DECREASED; TOTAL CELLS COUNTED 100
[2020-06-23] MEDS: gabapentin 300mg capsule PO SCH (07:42)
[2020-06-23] MEDS: amiodarone 200mg tablet PO SCH ×2 (07:43→20:23)
[2020-06-23] MEDS: aspirin 81mg tablet.DR PO SCH (07:43)
[2020-06-23] MEDS: sennosides/docusate sodium tablet PO SCH ×2 (07:43→20:23)
[2020-06-23] MEDS: pantoprazole 40mg Tablet.DR PO SCH (07:43)
[2020-06-23] MEDS: metoprolol tartrate 12.5mg (1/2 tablet) PO SCH ×2 (07:43→20:23)
[2020-06-23] MEDS ORDERED: furosemide 40mg/4ml inj IV ONE (08:00)
[2020-06-23] MEDS ORDERED: albumin (human) 25% 100 ML IV solution IV ONE (08:00)
[2020-06-23] MEDS: mupirocin 2% nasal ointment 1gm UD NS SCH (08:25)
[2020-06-23] MEDS: insulin Lispro (HumaLOG) vial - multi-dose SQ SCH ×2 (08:54→14:39)
[2020-06-23] MEDS: insulin glargine (Lantus) pen - multi-dose SQ SCH (08:55)
[2020-06-23] MEDS ORDERED: ondansetron 4mg rapidly disintigrating tab PO PRN (11:55)
[2020-06-23] MEDS: sodium chloride 0.45% 1,000 ML IV SCH (12:25)
[2020-06-23] MEDS: acetaminophen 325mg tablet PO PRN (17:56)
--- NOTE | 2020-06-23 18:01 | NUR ---
I have reviewed and agree with all medications administered and interventions performed by ICU STAFF NURSE Student Monica Black.
[2020-06-23] MEDS: furosemide 40mg/4ml inj IV SCH (20:25)
[2020-06-24] VITALS (19 sets, daily range): BP systolic 102–149; BP diastolic 5–81
--- NOTE | 2020-06-24 06:30 | NUR ---
Patient in room ICU 2044. I have received report from Kwame HOBBS and had the opportunity to ask questions and assume patient care.
[2020-06-24] MEDS: amiodarone 200mg tablet PO SCH ×2 (07:24→20:51)
[2020-06-24] MEDS: pantoprazole 40mg Tablet.DR PO SCH (07:26)
[2020-06-24] MEDS: aspirin 81mg tablet.DR PO SCH (07:26)
[2020-06-24] MEDS: metoprolol tartrate 12.5mg (1/2 tablet) PO SCH ×2 (07:26→20:51)
[2020-06-24] MEDS: sennosides/docusate sodium tablet PO SCH ×2 (07:26→20:00)
[2020-06-24] MEDS: furosemide 40mg/4ml inj IV SCH ×2 (07:27→20:51)
[2020-06-24] MEDS: insulin glargine (Lantus) pen - multi-dose SQ SCH (07:39)
[2020-06-24] MEDS: insulin Lispro (HumaLOG) vial - multi-dose SQ SCH ×3 (08:53→19:28)
[2020-06-24] MEDS ORDERED: potassium Cl 20mEq/100mL bag 100 ML IV PRN (09:00)
[2020-06-24] MEDS ORDERED: potassium CL 10mEq/100ml bag 100 ML IV PRN (09:00)
[2020-06-24] MEDS ORDERED: potassium Cl 40MEQ/250ML bag 250 ML IV PRN (09:00)
[2020-06-24] MEDS ORDERED: potassium Cl 40MEQ/1/2NS 520ml 520 ML IV PRN (09:00)
[2020-06-24] MEDS ORDERED: magnesium 2GM in 50ml NS 50 ML IV PRN (09:00)
[2020-06-24] MEDS ORDERED: potassium Cl 20 mEq SR tablet PO PRN (09:00)
[2020-06-24] MEDS ORDERED: magnesium 4gm in 100ml NS 100 ML IV PRN (09:00)
[2020-06-24] MEDS: spironolactone 25 MG tablet PO SCH (09:26)
--- NOTE | 2020-06-24 09:30 | NUR ---
AM labs were not drawn. MD aware and added a PT INR to be drawn. MD at bedside to pull Chest tubes and pacer wire. Labs drawn and sent down to lab.
--- NOTE | 2020-06-24 14:20 | NUR ---
Called lab to inquire about AM labs that were cancelled. Input new orders for labs and sent labs.
--- NOTE | 2020-06-24 14:40 | NUR ---
Patient report given, questions answered & plan of care reviewed with Juan HOBBS.
[2020-06-24 15:13] LABS: BASOPHILS # (AUTO) 0.1 X10'3 (0-0.2); BASOPHILS % (AUTO) 0.4 % (0-1); HEMATOCRIT 27.8 % (42.0-52.0); MEAN CORPUSCULAR HEMOGLOBIN 30.2 PG (27.0-31.0); WHITE BLOOD COUNT 22.4 X10'3 (4.5-11.0)
[2020-06-24 15:15] LABS: EOSINOPHILS # (AUTO) 0.1 X10'3 (0-0.9); EOSINOPHILS % (AUTO) 0.4 % (0-6); HEMOGLOBIN 9.4 g/dl (14.0-17.9); LYMPHOCYTES # (AUTO) 2.4 X10'3 (1.1-4.8); LYMPHOCYTES % (AUTO) 10.8 % (21-51); MEAN CORPUSCULAR HGB CONC 33.7 g/dL (33.0-36.5); MEAN CORPUSCULAR VOLUME 89.8 FL (78-98); MEAN PLATELET VOLUME 9.6 FL (7.4-10.4); MONOCYTES % (AUTO) 13.5 % (2-12); NEUTROPHILS # (AUTO) 16.7 X10'3 (1.8-7.7); NEUTROPHILS % (AUTO) 74.9 % (42-75); PLATELET COUNT 162 X10'3 (140-440); RED CELL DISTRIBUTION WIDTH 14.3 % (11.5-14.5)
[2020-06-24 15:25] LABS: ALBUMIN 2.8 G/DL (3.4-5.0); ANION GAP 9 (8-16); BLOOD UREA NITROGEN 31 MG/DL (7-18); BUN/CREATININE RATIO 25.8 (5.4-32.0); CALCIUM 7.5 MG/DL (8.5-10.1); CHLORIDE 99 MMOL/L (99-107); GLUCOSE 159 MG/DL (70-104); MAGNESIUM 2.3 MG/DL (1.5-2.4); POTASSIUM 3.4 MMOL/L (3.5-5.1); SODIUM 133 MMOL/L (135-145); eGFR 61 ML/MIN
--- NOTE | 2020-06-24 15:45 | NUR ---
matthews catheter removed and CVL removed per protocol. pt tolerated well.
--- NOTE | 2020-06-24 16:37 | NUR ---
Report called to receiving nurse. Transferred via wheelchair with all Belongings. Special Issues communicated to receiving nurse, Juan. Patient ambulated to bed with 2 person assist and connected to bedside monitor. vital signs stable.
--- NOTE | 2020-06-24 16:56 | NUR ---
pT ARRIVED VIA BY PEMA HOBBS. PT ASSISTED TO BED. VSS. REPORT RECEIVED FROM PEMA HOBBS AT 1440.
--- NOTE | 2020-06-24 18:28 | NUR ---
Patient in room MED 307. I have received report from Juan HOBBS and had the opportunity to ask questions and assume patient care.
[2020-06-24] MEDS: potassium Cl 20 mEq SR tablet PO SCH ×2 (20:00→22:34)
[2020-06-24] MEDS: magnesium Cl slow-release 64mg tablet PO SCH (20:00)
[2020-06-24] MEDS: albuterol 2.5 MG/3 ML nebule NEB SCH ×2 (20:05→23:24)
[2020-06-24] MEDS: warfarin 10mg tablet PO SCH (21:03)
--- NOTE | 2020-06-24 22:25 | NUR ---
Called and talked to Irma WATTERS regarding pt's K replacement. OK to give PO potassium as per protocol instead of IV.
[2020-06-25 02:00] VITALS: BP 109/54
[2020-06-25 06:49] LABS: BASOPHILS % (AUTO) 0.1 % (0-1); EOSINOPHILS # (AUTO) 0.1 X10'3 (0-0.9); EOSINOPHILS % (AUTO) 0.4 % (0-6); HEMATOCRIT 28.3 % (42.0-52.0); HEMOGLOBIN 9.6 g/dl (14.0-17.9); LYMPHOCYTES # (AUTO) 2.4 X10'3 (1.1-4.8); LYMPHOCYTES % (AUTO) 11.9 % (21-51); MEAN PLATELET VOLUME 8.9 FL (7.4-10.4); MONOCYTES # (AUTO) 2.9 X10'3 (0-0.9); MONOCYTES % (AUTO) 14.4 % (2-12); NEUTROPHILS # (AUTO) 14.5 X10'3 (1.8-7.7); NEUTROPHILS % (AUTO) 73.2 % (42-75); PLATELET COUNT 213 X10'3 (140-440); RED BLOOD COUNT 3.11 X10'6 (4.70-6.10); RED CELL DISTRIBUTION WIDTH 14.4 % (11.5-14.5); WHITE BLOOD COUNT 19.9 X10'3 (4.5-11.0)
[2020-06-25 07:00] LABS: ALBUMIN 2.7 G/DL (3.4-5.0); ANION GAP 7 (8-16); BLOOD UREA NITROGEN 27 MG/DL (7-18); BUN/CREATININE RATIO 24.5 (5.4-32.0); CALCIUM 7.8 MG/DL (8.5-10.1); CHLORIDE 101 MMOL/L (99-107); GLUCOSE 123 MG/DL (70-104); POTASSIUM 3.8 MMOL/L (3.5-5.1); SODIUM 134 MMOL/L (135-145); TOTAL CARBON DIOXIDE 26.2 MMOL/L (24-32); eGFR 68 ML/MIN
[2020-06-25 07:17] VITALS: BP 105/63
--- NOTE | 2020-06-25 07:22 | NUR ---
Patient in room MED 307. I have received report from [facility] and had the opportunity to ask questions and assume patient care.
[2020-06-25] MEDS: furosemide 40mg/4ml inj IV SCH (08:21)
[2020-06-25] MEDS: amiodarone 200mg tablet PO SCH ×2 (08:21→20:48)
[2020-06-25] MEDS: pantoprazole 40mg Tablet.DR PO SCH (08:22)
[2020-06-25] MEDS: potassium Cl 20 mEq SR tablet PO SCH ×2 (08:22→20:48)
[2020-06-25] MEDS: spironolactone 25 MG tablet PO SCH (08:22)
[2020-06-25] MEDS: metoprolol tartrate 12.5mg (1/2 tablet) PO SCH ×2 (08:22→20:49)
[2020-06-25] MEDS: aspirin 81mg tablet.DR PO SCH (08:22)
[2020-06-25] MEDS: magnesium Cl slow-release 64mg tablet PO SCH ×2 (08:23→20:48)
[2020-06-25] MEDS: sennosides/docusate sodium tablet PO SCH ×2 (08:23→20:00)
[2020-06-25] MEDS: insulin glargine (Lantus) pen - multi-dose SQ SCH (08:28)
[2020-06-25] MEDS: insulin Lispro (HumaLOG) vial - multi-dose SQ SCH ×3 (08:30→18:44)
[2020-06-25 08:56] LABS: ANION GAP 9 (8-16); BLOOD UREA NITROGEN 27 MG/DL (7-18); BUN/CREATININE RATIO 21.8 (5.4-32.0); CALCIUM 8.2 MG/DL (8.5-10.1); CHLORIDE 100 MMOL/L (99-107); CREATININE 1.24 MG/DL (0.60-1.10); GLUCOSE 217 MG/DL (70-104); SODIUM 134 MMOL/L (135-145); TOTAL CARBON DIOXIDE 25.5 MMOL/L (24-32); eGFR 59 ML/MIN
[2020-06-25] MEDS ORDERED: diphenhydrAMINE 25mg capsule PO PRN (09:25)
[2020-06-25] MEDS ORDERED: HYDROcodone/acetaminophen 5mg/325mg tablet PO PRN ×2 (09:25)
[2020-06-25 10:13] LABS: TOTAL CELLS COUNTED 100
[2020-06-25 10:14] LABS: PLATELET ESTIMATE NORMAL
[2020-06-25 10:15] LABS: POLYCHROMASIA 1+
[2020-06-25 11:04] VITALS: BP 98/47
[2020-06-25 15:59] VITALS: BP 104/56
--- NOTE | 2020-06-25 17:20 | NUR ---
End of shift rounds completed. pt up in chair after physical therapy. Provena wound vac to midsternum intact and patent. pt denies pain, vs stable. no distress noted. continue to use incentive spirometry while he is awake. good po intake. call ortiz in reach will monitor
[2020-06-25 18:00] VITALS: BP 90/46
--- NOTE | 2020-06-25 18:00 | NUR ---
Patient in room MED 307. I have received report from PEREZ RN and had the opportunity to ask questions and assume patient care.
[2020-06-25] MEDS: acetaminophen 325mg tablet PO PRN (18:59)
[2020-06-25] MEDS: furosemide 40mg tablet PO SCH (20:48)
[2020-06-25] MEDS: warfarin 10mg tablet PO SCH (20:55)
--- NOTE | 2020-06-25 21:30 | NUR ---
NEED TO CLARIFY INSULIN ODERS IN AM WITH DR. HOOKER, WILL PASS ON TO DAY SHIFT.LUIS M HOBBS
[2020-06-25 22:00] VITALS: BP 108/89
[2020-06-26 02:00] VITALS: BP 98/55
[2020-06-26 06:01] LABS: BASOPHILS # (AUTO) 0.1 X10'3 (0-0.2); BASOPHILS % (AUTO) 0.3 % (0-1); EOSINOPHILS # (AUTO) 0.3 X10'3 (0-0.9); EOSINOPHILS % (AUTO) 1.6 % (0-6); HEMATOCRIT 27.6 % (42.0-52.0); HEMOGLOBIN 9.2 g/dl (14.0-17.9); LYMPHOCYTES # (AUTO) 2.2 X10'3 (1.1-4.8); LYMPHOCYTES % (AUTO) 13.2 % (21-51); MEAN CORPUSCULAR HEMOGLOBIN 30.4 PG (27.0-31.0); MEAN CORPUSCULAR HGB CONC 33.3 g/dL (33.0-36.5); MEAN CORPUSCULAR VOLUME 91.2 FL (78-98); MEAN PLATELET VOLUME 8.6 FL (7.4-10.4); MONOCYTES # (AUTO) 2.7 X10'3 (0-0.9); NEUTROPHILS # (AUTO) 11.7 X10'3 (1.8-7.7); NEUTROPHILS % (AUTO) 68.9 % (42-75); PLATELET COUNT 268 X10'3 (140-440); RED BLOOD COUNT 3.02 X10'6 (4.70-6.10); RED CELL DISTRIBUTION WIDTH 14.3 % (11.5-14.5); WHITE BLOOD COUNT 16.9 X10'3 (4.5-11.0)
[2020-06-26 06:12] LABS: ALBUMIN 2.6 G/DL (3.4-5.0); ANION GAP 6 (8-16); BLOOD UREA NITROGEN 25 MG/DL (7-18); BUN/CREATININE RATIO 22.5 (5.4-32.0); CALCIUM 7.9 MG/DL (8.5-10.1); CHLORIDE 102 MMOL/L (99-107); CREATININE 1.11 MG/DL (0.60-1.10); GLUCOSE 117 MG/DL (70-104); POTASSIUM 3.8 MMOL/L (3.5-5.1); SODIUM 136 MMOL/L (135-145); TOTAL CARBON DIOXIDE 27.6 MMOL/L (24-32); eGFR 67 ML/MIN
--- NOTE | 2020-06-26 06:12 | NUR ---
Problems reprioritized. Patient report given, questions answered & plan of care reviewed with PEREZ RN.
--- NOTE | 2020-06-26 06:14 | NUR ---
Patient in room MED 307. I have received report from May and had the opportunity to ask questions and assume patient care.
[2020-06-26 07:23] VITALS: BP 99/66
[2020-06-26] MEDS: metoprolol tartrate 12.5mg (1/2 tablet) PO SCH ×2 (08:00→20:08)
[2020-06-26] MEDS: insulin glargine (Lantus) pen - multi-dose SQ SCH (08:00)
[2020-06-26] MEDS: sennosides/docusate sodium tablet PO SCH ×2 (08:00→20:00)
[2020-06-26] MEDS: potassium Cl 20 mEq SR tablet PO SCH ×2 (08:20→19:59)
[2020-06-26] MEDS: amiodarone 200mg tablet PO SCH (08:20)
[2020-06-26] MEDS: magnesium Cl slow-release 64mg tablet PO SCH ×2 (08:20→19:59)
[2020-06-26] MEDS: aspirin 81mg tablet.DR PO SCH (08:20)
[2020-06-26] MEDS: pantoprazole 40mg Tablet.DR PO SCH (08:21)
[2020-06-26] MEDS: atorvastatin 10mg tablet PO SCH (08:21)
[2020-06-26] MEDS: furosemide 40mg tablet PO SCH ×2 (08:21→20:06)
[2020-06-26] MEDS: spironolactone 25 MG tablet PO SCH (08:21)
[2020-06-26] MEDS: insulin Lispro (HumaLOG) vial - multi-dose SQ SCH ×3 (08:36→18:30)
[2020-06-26] MEDS ORDERED: amiodarone 200mg tablet PO SCH (08:42)
[2020-06-26 11:29] VITALS: BP 109/41
[2020-06-26 15:33] VITALS: BP 113/63
--- NOTE | 2020-06-26 16:56 | NUR ---
Nutrition consult, pt is s/p AVR, met at bedside and given written post cardiac education handout with verbal review prior to discharge. Hgb A1c 7.3%, also given written DM education handout with verbal review. Eating well, 75-100% average PO intake. Reports a great appetite, no questions or concerns at this time. Recommend: 1. Continue carb controlled diet 2. Continue bowel care 3. Weight per rx Addendum: 06/26/20 at [address] Amended: Links added.
--- NOTE | 2020-06-26 17:20 | NUR ---
END OF SHIFT ROUNDS COMPLETED. PT IN ROOM WATCHING TV AND TALKING ON PHONE. HE DENIES PAIN NO DISTRESS. WOUND VAC INTACT. PT AMBULATED IN [place] WITH THERAPY . GOOD APPETITE FOR MEALS . CALL KNIGHT IN REACH WILL MONITOR
--- NOTE | 2020-06-26 18:06 | NUR ---
Problems reprioritized. Patient report given TO Carlos questions answered & plan of care reviewed with .
--- NOTE | 2020-06-26 18:35 | NUR ---
Patient in room MED 307. I have received report from Bárbara-RN(T), and had the opportunity to ask questions and assume patient care.
[2020-06-26 19:00] VITALS: BP 117/59
--- NOTE | 2020-06-26 19:10 | NUR ---
Patient 60 gm of carb. refused to get the full insulin coverage (20 units) with being in level 6. He received 10 units of short acting insulin for the dinner coverage. The blood sugar before the dinner was 92. Will monitor patient for any hyper/hypo glycemic sign and symptoms. Patient is AOX4. Not at any distress. All needs are met. Addendum: 06/27/20 at 0319 by Michelle Cooper RN Patient had 60 gm of carb.
[2020-06-26] MEDS: warfarin 10mg tablet PO SCH (20:10)
[2020-06-26 22:22] VITALS: BP 113/63
[2020-06-27] VITALS (7 sets, daily range): BP systolic 93–129; BP diastolic 49–74
[2020-06-27 05:51] LABS: BASOPHILS # (AUTO) 0.1 X10'3 (0-0.2); BASOPHILS % (AUTO) 0.5 % (0-1); EOSINOPHILS # (AUTO) 0.3 X10'3 (0-0.9); EOSINOPHILS % (AUTO) 1.6 % (0-6); HEMATOCRIT 27.2 % (42.0-52.0); HEMOGLOBIN 9.1 g/dl (14.0-17.9); LYMPHOCYTES # (AUTO) 2.3 X10'3 (1.1-4.8); LYMPHOCYTES % (AUTO) 13.4 % (21-51); MEAN CORPUSCULAR HEMOGLOBIN 30.5 PG (27.0-31.0); MEAN CORPUSCULAR HGB CONC 33.5 g/dL (33.0-36.5); MEAN CORPUSCULAR VOLUME 91.1 FL (78-98); MEAN PLATELET VOLUME 8.5 FL (7.4-10.4); MONOCYTES # (AUTO) 2.3 X10'3 (0-0.9); MONOCYTES % (AUTO) 13.5 % (2-12); NEUTROPHILS # (AUTO) 12.2 X10'3 (1.8-7.7); PLATELET COUNT 307 X10'3 (140-440); RED BLOOD COUNT 2.98 X10'6 (4.70-6.10); RED CELL DISTRIBUTION WIDTH 14.6 % (11.5-14.5); WHITE BLOOD COUNT 17.2 X10'3 (4.5-11.0)
[2020-06-27 05:53] LABS: ALBUMIN 2.5 G/DL (3.4-5.0); ANION GAP 7 (8-16); BLOOD UREA NITROGEN 22 MG/DL (7-18); BUN/CREATININE RATIO 18.5 (5.4-32.0); CHLORIDE 102 MMOL/L (99-107); CREATININE 1.19 MG/DL (0.60-1.10); GLUCOSE 121 MG/DL (70-104); SODIUM 138 MMOL/L (135-145); TOTAL CARBON DIOXIDE 29.1 MMOL/L (24-32); eGFR 62 ML/MIN
--- NOTE | 2020-06-27 06:17 | NUR ---
Problems reprioritized. Patient report given, questions answered & plan of care reviewed with Mansoor .
[2020-06-27] MEDS: atorvastatin 10mg tablet PO SCH (07:35)
[2020-06-27] MEDS: pantoprazole 40mg Tablet.DR PO SCH (07:35)
[2020-06-27] MEDS: potassium Cl 20 mEq SR tablet PO SCH ×2 (07:35→19:23)
[2020-06-27] MEDS: sennosides/docusate sodium tablet PO SCH ×2 (07:35→19:23)
[2020-06-27] MEDS: amiodarone 200mg tablet PO SCH (07:36)
[2020-06-27] MEDS: magnesium Cl slow-release 64mg tablet PO SCH ×2 (07:36→19:23)
[2020-06-27] MEDS: aspirin 81mg tablet.DR PO SCH (07:36)
[2020-06-27] MEDS: insulin glargine (Lantus) pen - multi-dose SQ SCH (07:40)
[2020-06-27] MEDS: insulin Lispro (HumaLOG) vial - multi-dose SQ SCH ×3 (07:49→19:23)
[2020-06-27] MEDS: metoprolol tartrate 12.5mg (1/2 tablet) PO SCH ×2 (07:51→19:28)
[2020-06-27] MEDS: furosemide 40mg tablet PO SCH ×2 (07:51→08:00)
--- NOTE | 2020-06-27 07:56 | NUR ---
patients initial bp was 93/55, recheck was 102/54. Per sudarshan Yu to give morning bp meds.
[2020-06-27] MEDS ORDERED: spironolactone 25 MG tablet PO SCH (08:30)
--- NOTE | 2020-06-27 18:35 | NUR ---
Patient in room MED 307. I have received report from Mansoor, and had the opportunity to ask questions and assume patient care.
[2020-06-27] MEDS: warfarin 10mg tablet PO SCH (21:39)
[2020-06-28 01:00] VITALS: BP 105/75
--- NOTE | 2020-06-28 01:14 | NUR ---
PAGER ID: [phone] MESSAGE: Jus Yun 80M admitted for Ac exac of chronic cardiomyopathy had lactic acid drawn at 2315 and the result is 2.1. Do you still want us to draw another lactic acid at 0100? [id number]. Addendum: 06/28/20 at 0402 by Michelle Cooper RN Cut and past in the wrong patient chart.
--- NOTE | 2020-06-28 06:38 | NUR ---
Problems reprioritized. Patient report given, questions answered & plan of care reviewed with Treasure(T).
[2020-06-28 07:00] VITALS: BP 102/55
[2020-06-28 07:12] LABS: BASOPHILS # (AUTO) 0.1 X10'3 (0-0.2); BASOPHILS % (AUTO) 0.5 % (0-1); EOSINOPHILS # (AUTO) 0.3 X10'3 (0-0.9); EOSINOPHILS % (AUTO) 1.8 % (0-6); HEMATOCRIT 27.1 % (42.0-52.0); HEMOGLOBIN 9.1 g/dl (14.0-17.9); LYMPHOCYTES # (AUTO) 2.1 X10'3 (1.1-4.8); LYMPHOCYTES % (AUTO) 13.2 % (21-51); MEAN CORPUSCULAR HEMOGLOBIN 30.4 PG (27.0-31.0); MEAN CORPUSCULAR HGB CONC 33.7 g/dL (33.0-36.5); MEAN CORPUSCULAR VOLUME 90.1 FL (78-98); MONOCYTES # (AUTO) 2.3 X10'3 (0-0.9); MONOCYTES % (AUTO) 13.9 % (2-12); NEUTROPHILS # (AUTO) 11.5 X10'3 (1.8-7.7); NEUTROPHILS % (AUTO) 70.6 % (42-75); PLATELET COUNT 399 X10'3 (140-440); RED CELL DISTRIBUTION WIDTH 14.2 % (11.5-14.5); WHITE BLOOD COUNT 16.3 X10'3 (4.5-11.0)
[2020-06-28 07:44] LABS: ALBUMIN 2.6 G/DL (3.4-5.0); ANION GAP 10 (8-16); BLOOD UREA NITROGEN 20 MG/DL (7-18); BUN/CREATININE RATIO 21.3 (5.4-32.0); CALCIUM 8.1 MG/DL (8.5-10.1); CHLORIDE 102 MMOL/L (99-107); CREATININE 0.94 MG/DL (0.60-1.10); GLUCOSE 107 MG/DL (70-104); POTASSIUM 4.3 MMOL/L (3.5-5.1); SODIUM 138 MMOL/L (135-145); TOTAL CARBON DIOXIDE 26.1 MMOL/L (24-32); eGFR 81 ML/MIN
[2020-06-28] MEDS: potassium Cl 20 mEq SR tablet PO SCH ×2 (08:33→19:33)
[2020-06-28] MEDS: aspirin 81mg tablet.DR PO SCH (08:33)
[2020-06-28] MEDS: magnesium Cl slow-release 64mg tablet PO SCH ×2 (08:34→19:48)
[2020-06-28] MEDS: pantoprazole 40mg Tablet.DR PO SCH (08:34)
[2020-06-28] MEDS: metoprolol tartrate 12.5mg (1/2 tablet) PO SCH ×2 (08:34→19:44)
[2020-06-28] MEDS: atorvastatin 10mg tablet PO SCH (08:34)
[2020-06-28] MEDS: amiodarone 200mg tablet PO SCH (08:34)
[2020-06-28] MEDS: furosemide 40mg tablet PO SCH (08:34)
[2020-06-28] MEDS: sennosides/docusate sodium tablet PO SCH ×2 (08:34→19:33)
[2020-06-28] MEDS ORDERED: enoxaparin 100mg/ml syringe SUBCUT ONE (08:35)
[2020-06-28] MEDS: insulin Lispro (HumaLOG) vial - multi-dose SQ SCH ×3 (09:29→19:40)
[2020-06-28] MEDS: insulin glargine (Lantus) pen - multi-dose SQ SCH (09:30)
[2020-06-28 11:00] VITALS: BP 94/54
[2020-06-28 16:00] VITALS: BP 109/56
[2020-06-28 19:00] VITALS: BP 119/63
[2020-06-28] MEDS: enoxaparin 100mg/ml syringe SUBCUT SCH (19:34)
[2020-06-28] MEDS: warfarin 10mg tablet PO SCH (21:28)
[2020-06-28 23:00] VITALS: BP 102/54
[2020-06-29 02:00] VITALS: BP 99/57
[2020-06-29 06:00] VITALS: BP 95/51
--- NOTE | 2020-06-29 06:10 | NUR ---
Patient in room MED 307. I have received report from ANJEL Martinez and had the opportunity to ask questions and assume patient care.
--- NOTE | 2020-06-29 06:15 | NUR ---
Problems reprioritized. Patient report given, questions answered & plan of care reviewed with Mary Beth-ANJEL(T).
[2020-06-29 06:16] LABS: BASOPHILS # (AUTO) 0.1 X10'3 (0-0.2); BASOPHILS % (AUTO) 0.9 % (0-1); EOSINOPHILS # (AUTO) 0.2 X10'3 (0-0.9); EOSINOPHILS % (AUTO) 1.6 % (0-6); HEMATOCRIT 25.8 % (42.0-52.0); HEMOGLOBIN 8.7 g/dl (14.0-17.9); LYMPHOCYTES # (AUTO) 2.2 X10'3 (1.1-4.8); LYMPHOCYTES % (AUTO) 16.6 % (21-51); MEAN CORPUSCULAR HEMOGLOBIN 30.1 PG (27.0-31.0); MEAN CORPUSCULAR HGB CONC 33.5 g/dL (33.0-36.5); MEAN CORPUSCULAR VOLUME 89.8 FL (78-98); MEAN PLATELET VOLUME 7.8 FL (7.4-10.4); MONOCYTES # (AUTO) 2.1 X10'3 (0-0.9); MONOCYTES % (AUTO) 15.2 % (2-12); NEUTROPHILS # (AUTO) 8.9 X10'3 (1.8-7.7); NEUTROPHILS % (AUTO) 65.7 % (42-75); PLATELET COUNT 421 X10'3 (140-440); RED BLOOD COUNT 2.87 X10'6 (4.70-6.10); RED CELL DISTRIBUTION WIDTH 14.4 % (11.5-14.5); WHITE BLOOD COUNT 13.6 X10'3 (4.5-11.0)
[2020-06-29 06:36] LABS: ALBUMIN 2.4 G/DL (3.4-5.0); ANION GAP 5 (8-16); BLOOD UREA NITROGEN 19 MG/DL (7-18); BUN/CREATININE RATIO 18.1 (5.4-32.0); CALCIUM 8.2 MG/DL (8.5-10.1); CHLORIDE 105 MMOL/L (99-107); CREATININE 1.05 MG/DL (0.60-1.10); GLUCOSE 98 MG/DL (70-104); POTASSIUM 4.2 MMOL/L (3.5-5.1); SODIUM 137 MMOL/L (135-145); eGFR 72 ML/MIN
[2020-06-29] MEDS ORDERED: AMIO200T67 PO (07:37)
[2020-06-29] MEDS ORDERED: FURO-150 PO (07:37)
[2020-06-29] MEDS ORDERED: HYDR-3964 PO (07:37)
[2020-06-29] MEDS ORDERED: METO25TA6 PO (07:37)
[2020-06-29] MEDS ORDERED: POTA10TA36 PO (07:37)
[2020-06-29] MEDS ORDERED: ENOX100D5 SUBCUT (07:37)
[2020-06-29] MEDS: aspirin 81mg tablet.DR PO SCH (08:02)
[2020-06-29] MEDS: magnesium Cl slow-release 64mg tablet PO SCH (08:02)
[2020-06-29] MEDS: potassium Cl 20 mEq SR tablet PO SCH (08:02)
[2020-06-29] MEDS: atorvastatin 10mg tablet PO SCH (08:03)
[2020-06-29] MEDS: pantoprazole 40mg Tablet.DR PO SCH (08:03)
[2020-06-29] MEDS: sennosides/docusate sodium tablet PO SCH (08:04)
[2020-06-29] MEDS: amiodarone 200mg tablet PO SCH (08:05)
[2020-06-29] MEDS: enoxaparin 100mg/ml syringe SUBCUT SCH (08:08)
[2020-06-29] MEDS: metoprolol tartrate 12.5mg (1/2 tablet) PO SCH (08:09)
[2020-06-29] MEDS: furosemide 40mg tablet PO SCH (08:13)
[2020-06-29 08:14] VITALS: BP 112/59
[2020-06-29] MEDS: insulin glargine (Lantus) pen - multi-dose SQ SCH (09:27)
[2020-06-29] MEDS: insulin Lispro (HumaLOG) vial - multi-dose SQ SCH ×2 (09:28→13:51)
[2020-06-29 11:00] VITALS: BP 96/61
--- NOTE | 2020-06-29 14:45 | NUR ---
Pt has been d/c'd. Pt is stable with orders from MD to d/c. All belongings with patient. All d/c ppwk was reviewed with patient and patient had the opportunity to ask questions and get answers. All meds faxed to [facility]. Pt was picked up by sister in personal vehicle. Pt will follow up with Dr Martinez, Dr Izquierdo, and PCP.
== END 2020-06-29 14:50 | disposition home health service (06) | DRG 220 ==
LOC: PAS IN 05:21 → EDSTATUS 07:30 → ICU 2S 09:34 → MED 3N 06-24 16:30
PROVIDERS: ADMIT Thoracic Surgery (Cardiothoracic Vascular Surgery); ATTEND Thoracic Surgery (Cardiothoracic Vascular Surgery)
PROC: 02580ZZ Destruction of Conduction Mechanism, Open Approach (ICD-10-PCS; 2020-06-21)
PROC: 02L70CK Occlusion of Left Atrial Appendage with Extraluminal Device, Open Approach (ICD-10-PCS; 2020-06-21)
PROC: 5A1221Z Performance of Cardiac Output, Continuous (ICD-10-PCS; 2020-06-21)
PROC: B24BZZ4 Ultrasonography of Heart with Aorta, Transesophageal (ICD-10-PCS; 2020-06-21)
PROC: 02RF08Z Replacement of Aortic Valve with Zooplastic Tissue, Open Approach (ICD-10-PCS; principal; 2020-06-21 06:59)
DX: I35.0 Nonrheumatic aortic (valve) stenosis (principal); I48.11 Longstanding persistent atrial fibrillation; E11.9 Type 2 diabetes mellitus without complications; E78.00 Pure hypercholesterolemia, unspecified; E66.01 Morbid (severe) obesity due to excess calories; I10 Essential (primary) hypertension; Z79.01 Long term (current) use of anticoagulants; Z85.828 Personal history of other malignant neoplasm of skin; Z00.6 Encounter for examination for normal comparison and control in clinical research program; Z68.37 Body mass index [BMI] 37.0-37.9, adult
CPT/HCPCS: 0232T; 93312; 93325; Z7506; Z7508; 36415; 36600; 71045; 80048; 80053; 81003; 82330; 82435; 82800; 82803; 82810; 82947; 82948; 83036; 83605; 83615; 83735; 84100; 84132; 84295; 85007; 85018; 85025; 85347; 85384; 85610; 85730; 86885; 86900; 86901; 86920; 87081; 87635; 93005; 94002; 94640; 94668; 94760; 97110; 97116; 97161; 97530; A4618; A6258; A6449; A7000; A7048; C1713; C1751; C9113; C9250; G0378; J0690; J1250; J1644; J1650; J1815; J1940; J2060; J2150; J2250; J2260; J2270; J2704; J2930; J3370; J3475; J3480; J3490; J7030; J7040; J7050; J7060; J7120; P9045; P9047; Q0163

== ENCOUNTER 2023-08-26 16:59 | Emergency (ER) | payer BC, OTHER ==
[~2023-08-26] VITALS: Ht 167.6 cm; Wt 100.7 kg
[~2023-08-26 16:59] MED LIST changes: +AMIO200T67 PO; -ENAL20TA75 PO; +ENOX100D5 SUBCUT; +FURO-150 PO; +LOP25T PO; +POTA-206 PO; -SOTA80TA PO; +WARF-55 PO; -WARF10TA45 PO; -ceFAZolin 1000mg inj ONE; -ringers solution, lacted 1,000 ML IV SCH
[2023-08-26 17:06] VITALS: BP 155/64; PULSE 85; RESP 16; O2SAT 97
[2023-08-26 21:24] VITALS: TEMP 98
== END 2023-08-26 21:27 | disposition home or self-care (01) ==
LOC: ER 17:00
DX: S80.211A Abrasion, right knee, initial encounter (principal); S50.311A Abrasion of right elbow, initial encounter; S60.410A Abrasion of right index finger, initial encounter; W19.XXXA Unspecified fall, initial encounter; Y93.89 Activity, other specified; Y92.89 Other specified places as the place of occurrence of the external cause; Y99.8 Other external cause status; I48.91 Unspecified atrial fibrillation; E78.00 Pure hypercholesterolemia, unspecified; I10 Essential (primary) hypertension; E11.9 Type 2 diabetes mellitus without complications
CPT/HCPCS: 71046; 71250; 74176; 99284